=== PATIENT | female | born 1935 | race Caucasian/White ===

== ENCOUNTER → 2017-06-19 | Outpatient (CLI) | payer MEDICARE, OTHER ==
[2016-09-09 12:14] VITALS: BMI 40.6
[~2017-06-19] MED LIST: ALBU8.5H IH; ALLO-119 PO; ALLO100T70 PO; AMLO-96 PO; AMLO-99 PO; AMOX-559 PO; AZIT-1 PO; AZIT-17 PO; BENZ100C26 PO; BENZ100C4 PO; BENZ200C15 PO; BUM2 PO; BUME1TAB19 PO; CHOL10005 PO; CIPHCO EACH EAR; CLIN300C99 PO; COLC0.6C3 PO; COLC0.6T2 PO; CYAN500T38 PO; CYCL-277 PO; CYCL7.5T21 PO; DICL-195 PO; DICL100G39 TOP; DIPH0.5D12 IM; DOCU50CA8 PO; EZET10TA41 PO; FLU220R INH; FLUT16SP19 NS; FLUT1DIS28 IH; FLUT1DIS29 IH; GABA-547 PO; GABA-549 PO; GLY25 FT; GLY25 PO; GUAI600T57 PO; HYDR-385 PO; INSU100C14 SQ; INSU100I28 SQ; INSU100I30 SQ; INSU100I35 SUBQ; IPRA3AMP21 IH; LIDO20SO21 PO; LOR5/325 PO; LOSA100T67 PO; METF-420 PO; METH4TAB66 PO; METH4TAB67 PO; MONT10TA PO; NEBI10TA4 PO; NEBI5TAB PO; NEBU1KIT MC; NEBU1KIT43 MC; NEED-498 MC; NYST100040 PO; PANT40TA65 PO; PIOG15TA14 PO; PIOG30TA3 PO; PREG75CA60 PO; RANI-318 PO; RIVA3CAP PO; ROSU20TA23 PO; SPIR25TA78 PO; TIO18R INH; TRI100 PO; [UNRECOGNIZED DRUG - CODE] SQ
[2017-06-19 13:53] LABS: PLATELET COUNT, AUTOMATED 188 K/uL (150-450)
--- NOTE | 2017-06-19 15:14 | RADIOLOGY IMAGING REPORT ---
FACILITY: [facility] - [place] PATIENT NAME: Kiersten Nails : 1935 MR: [id number] V: [id number] EXAM DATE: ORDERING PHYSICIAN: LYUDMILA PEÑA TECHNOLOGIST: Location: [facility] [place] Patient: Kiersten Nails : 1935 Visit/Account:[id number] Date of Sevice: 06/19/2017 Exam type: CHEST PA AND LAT History: cough Comparison: September 11, 2016. Findings: There is mild by basilar linear scarring. There is no evidence of acute appearing infiltrates pleura l effusions or pulmonary edema there is an ovoid area of increased density projecting over the right heart border on the PA view. This is not ideally localized on the lateral view. This could represen t a superimposed shadow however if patient's symptoms persist CT of the chest may be helpful to exclu de a mass. The cardiac silhouette is normal in size. The trachea is midline. There are moderate sp ondylotic changes of the visualized thoracolumbar spine. IMPRESSION: 1. By basilar linear scarring On the PA view the chest only there is an ovoid area of increased density which could represent a sup erimposed shadow versus mass. If patient's symptoms persist CT of the chest may be of value Report Dictated By: Yoselin Garza MD at 06/19/2017 3:07 PM Report E-Signed By: Yoselin Garza MD at 06/19/2017 3:10 PM WSN:[email or web address]
== END ==
LOC: LAB 13:25
PROVIDERS: ATTEND Internal Medicine
DX: J45.909 Unspecified asthma, uncomplicated (principal); N18.9 Chronic kidney disease, unspecified; I12.9 Hypertensive chronic kidney disease with stage 1 through stage 4 chronic kidney disease, or unspecified chronic kidney disease; E11.40 Type 2 diabetes mellitus with diabetic neuropathy, unspecified; R79.89 Other specified abnormal findings of blood chemistry
CPT/HCPCS: 36415; 82040; 82247; 82310; 82374; 82435; 82565; 82947; 84075; 84132; 84155; 84295; 84443; 84450; 84460; 84520; 85025

== ENCOUNTER → 2017-06-21 | Outpatient (CLI) | payer MEDICARE, OTHER ==
[2016-09-09 12:14] VITALS: BMI 40.6
--- NOTE | 2017-06-21 12:11 | RADIOLOGY IMAGING REPORT ---
FACILITY: [facility] PATIENT NAME: Kiersten Nails : 1935 MR: [id number] V: [id number] EXAM DATE: ORDERING PHYSICIAN: LYUDMILA PEÑA TECHNOLOGIST: Location: [facility] [place] Patient: Kiersten Nails : 1935 Visit/Account:[id number] Date of Sevice: 06/21/2017 CHEST W/O CONTRAST History: lung mass TECHNIQUE: Contiguous axial images were performed through the chest to the level of the adrenal gla nds. No IV contrast was administered. Coronal and sagittal reformatting was also performed. Dose Lowe ring Technique One of the following dose optimization techniques was utilized in the performance of this exam: Autom ated exposure control; adjustment of the mA and/or kV according to the patient's size; or use of an i terative reconstruction technique. Specific details can be referenced in the facility's radiology C T exam operational policy. COMPARISON STUDIES: PA and lateral chest 04/08 2017. Lungs / Pleura: There is mild linear stranding in the lung bases consistent with minimal scarring v ersus discoid atelectasis. A mass lesion is not identified within either lung. The apparent pseudom ass seen projecting over the right lung base on the recent chest radiograph may be related to promine nt vascular structures seen on end. Mediastinum/nodes: No pathologic-appearing mediastinal adenopathy is seen. Small amount of secretio ns are seen in the upper trachea. Heart and vessels: There are moderate coronary artery vascular calcifications and calcination seen a t the aortic root. Central pulmonary arteries are mildly prominent which can be seen with pulmonary arterial hypertension Musculoskeletal / Body wall: There is an S-shaped scoliosis of the thoracal lumbar spine with assoc iated spondylotic changes. Upper abdomen: There is a moderate size hiatal hernia. IMPRESSION: Is no evidence of a pulmonary mass. The pseudomass seen on the recent chest radiograph may be relate d to a prominent vascular structure seen on end. Very mild linear stranding the lung bases consistent with minimal scarring versus discoid atelectasis Small amount of secretions identified in the upper trachea Moderate coronary artery vascular calcifications Central pulmonary arteries are mildly prominent which can be seen with pulmonary arterial hypertensio n Moderate size hiatal hernia Report Dictated By: Yoselin Garza MD at 06/21/2017 11:55 AM Report E-Signed By: Yoselin Garza MD at 06/21/2017 12:06 PM DIEGON:[email or web address]
== END ==
LOC: CT 01:09
PROVIDERS: ATTEND Internal Medicine
DX: R91.8 Other nonspecific abnormal finding of lung field (principal); K44.9 Diaphragmatic hernia without obstruction or gangrene
CPT/HCPCS: 71250

== ENCOUNTER → 2017-07-03 | Outpatient (CLI) | payer MEDICARE, OTHER ==
[2016-09-09 12:14] VITALS: BMI 40.6
[~2017-07-03] MED LIST changes: +ONDA-2 PO
[2017-07-03 08:28] LABS: PLATELET COUNT, AUTOMATED 148 K/uL (150-450)
== END ==
LOC: LAB 08:08
PROVIDERS: ATTEND Internal Medicine
DX: I12.9 Hypertensive chronic kidney disease with stage 1 through stage 4 chronic kidney disease, or unspecified chronic kidney disease (principal); N18.3 Chronic kidney disease, stage 3 (moderate); M1A.39X0 Chronic gout due to renal impairment, multiple sites, without tophus (tophi); E78.00 Pure hypercholesterolemia, unspecified; E11.40 Type 2 diabetes mellitus with diabetic neuropathy, unspecified
CPT/HCPCS: 36415; 81001; 82040; 82043; 82247; 82310; 82374; 82435; 82465; 82565; 82947; 83036; 83718; 84075; 84132; 84155; 84295; 84443; 84450; 84460; 84478; 84520; 84550; 85025

== ENCOUNTER → 2017-08-08 | Outpatient (CLI) | payer MEDICARE, OTHER ==
[2016-09-09 12:14] VITALS: BMI 40.6
--- NOTE | 2017-08-09 09:05 | RADIOLOGY IMAGING REPORT ---
[place] [facility] [place] NAME: JUVE VELARDE : [id number] MR: [id number] V: [id number] EXAM DATE: ORDERING PHYSICIAN: LYUDMILA PEÑA TECHNOLOGIST: She Ragland PROCEDURE:BILATERAL DIGITAL SCREENING MAMMOGRAM WITH CAD ASSISTED INTERPRETATION & 3D TOMOSYNTHESIS COMPARISON:Prior mammograms 07/28/16, 07/24/14, 10/10/12, 10/10/11, 04/04/11 INDICATIONS:SCREENING FINDINGS: A small amount of fibroglandular tissue is seen throughout the breasts. The parenchymal pattern has remained stable allowing for difference in mammographic technique & patient positioning. There is no evidence of malignant appearing mass, malignant appearing calcifications or other secondary sign of malignancy in either breast. DIAGNOSTIC CATEGORY 1--NEGATIVE. RECOMMENDATIONS: ROUTINE MAMMOGRAM AND CLINICAL EVALUATION. IMPRESSION: BIRADS 1: Negative No significant abnormality is seen Dictated by: Yoselin Garza M.D. on 08/08/2017 at 16:55 Transcribed by: FIX on 08/09/2017 at 8:00 Approved by: Yoselin Garza M.D. on 08/09/2017 at 9:04 [facility]
== END ==
LOC: MAMO 00:14
PROVIDERS: ATTEND Internal Medicine
DX: Z12.31 Encounter for screening mammogram for malignant neoplasm of breast (principal)
CPT/HCPCS: 77063; 77067

== ENCOUNTER → 2017-09-26 | Outpatient (CLI) | payer MEDICARE, OTHER ==
[2016-09-09 12:14] VITALS: BMI 40.6
[2017-09-26 08:47] LABS: PLATELET COUNT, AUTOMATED 177 K/uL (150-450)
== END ==
LOC: LAB 08:23
PROVIDERS: ATTEND Internal Medicine
DX: I12.9 Hypertensive chronic kidney disease with stage 1 through stage 4 chronic kidney disease, or unspecified chronic kidney disease (principal); N18.3 Chronic kidney disease, stage 3 (moderate); E11.40 Type 2 diabetes mellitus with diabetic neuropathy, unspecified; M1A.09X0 Idiopathic chronic gout, multiple sites, without tophus (tophi); E78.00 Pure hypercholesterolemia, unspecified
CPT/HCPCS: 36415; 82040; 82247; 82310; 82374; 82435; 82465; 82565; 82947; 83036; 83718; 84075; 84132; 84155; 84295; 84443; 84450; 84460; 84478; 84520; 84550; 85025

== ENCOUNTER → 2017-12-04 | Outpatient (CLI) | payer MEDICARE, OTHER ==
[2016-09-09 12:14] VITALS: BMI 40.6
[~2017-12-04] MED LIST changes: +LEVO50TA86 PO; -METF-420 PO; +METF-421 PO; +OXYC-865 PO
[2017-12-04 07:58] LABS: PLATELET COUNT, AUTOMATED 192 K/uL (150-450)
== END ==
LOC: LAB 07:34
PROVIDERS: ATTEND Internal Medicine
DX: I12.9 Hypertensive chronic kidney disease with stage 1 through stage 4 chronic kidney disease, or unspecified chronic kidney disease (principal); N18.9 Chronic kidney disease, unspecified; J45.909 Unspecified asthma, uncomplicated; M10.9 Gout, unspecified; E66.01 Morbid (severe) obesity due to excess calories; E11.49 Type 2 diabetes mellitus with other diabetic neurological complication
CPT/HCPCS: 36415; 82040; 82043; 82247; 82310; 82374; 82435; 82465; 82565; 82947; 83036; 83718; 84075; 84132; 84155; 84295; 84439; 84443; 84450; 84460; 84478; 84520; 84550; 85025

== ENCOUNTER → 2018-03-12 | Outpatient (CLI) | payer MEDICARE, OTHER ==
[2016-09-09 12:14] VITALS: BMI 40.6
[~2018-03-12] MED LIST changes: +AMLO-111 PO; +AMLO-113 PO; -AMLO-96 PO; -AMLO-99 PO; +IPRA3AMP10 IH; -IPRA3AMP21 IH; -LOSA100T67 PO; +LOSA100T69 PO; -METF-421 PO; +METF-452 PO; -PIOG30TA3 PO; +PIOG30TA71 PO; -SPIR25TA78 PO; +SPIR25TA80 PO
[2018-03-12 08:40] LABS: PLATELET COUNT, AUTOMATED 218 K/uL (150-450)
== END ==
LOC: LAB 08:01
PROVIDERS: ATTEND Internal Medicine
DX: E03.9 Hypothyroidism, unspecified (principal); E11.49 Type 2 diabetes mellitus with other diabetic neurological complication; E78.00 Pure hypercholesterolemia, unspecified; M10.9 Gout, unspecified; N18.9 Chronic kidney disease, unspecified; I10 Essential (primary) hypertension
CPT/HCPCS: 36415; 81001; 82040; 82247; 82310; 82374; 82435; 82465; 82565; 82947; 83036; 83718; 84075; 84132; 84155; 84295; 84443; 84450; 84460; 84478; 84520; 84550; 85025

== ENCOUNTER → 2018-05-21 | Outpatient (CLI) | payer MEDICARE, OTHER ==
[2016-09-09 12:14] VITALS: BMI 40.6
[~2018-05-21] MED LIST changes: +NEED-653 MC
[2018-05-21 12:23] LABS: PLATELET COUNT, AUTOMATED 187 K/uL (150-450)
--- NOTE | 2018-05-21 13:54 | RADIOLOGY IMAGING REPORT ---
FACILITY: [facility] [place] PATIENT NAME: Kiersten Nails : 1935 MR: [id number] V: [id number] EXAM DATE: ORDERING PHYSICIAN: LYUDMILA PEÑA TECHNOLOGIST: Location: [facility] [place] Patient: Kiersten Nails : 1935 Visit/Account:[id number] Date of Sevice: 05/21/2018 ABDOMEN AP AND ERECT/DECUB History: Chronic kidney disease. Diarrhea for 2 months. Comparison study: CT chest June 21, 2017. Findings: Chest: The heart size is normal. There is linear density in the lung bases but there is n o finding A. Previously noted nodular densities on the prior CT scan are not as well seen on today's examination. ABDOMEN: There are no dilated loops of large or small bowel to suggest ileus or obstruction. There i s a fair amount of fecal material throughout the colon and rectum. The possibility constipation is r aised. There is osteopenia. Status post right total hip replacement. Osteoarthrosis of the left knee. Dis cogenic degenerative changes in the lumbar spine. No obvious renal calculi noted. IMPRESSION: 1. No active disease in the chest. Bibasilar scarring. 2. No findings of ileus or obstruction, but there is a fair amount of fecal material throughout the colon. The possibility constipation is raised. 3. Discogenic degenerative changes in the lumbar spine. Osteoarthrosis of the left hip. Status pos t right total hip replacement. Report Dictated By: Hero Dela Cruz MD at 05/21/2018 1:49 PM Report E-Signed By: Hero Dela Cruz MD at 05/21/2018 1:51 PM WSN:[email or web address]
== END ==
LOC: LAB 11:35
PROVIDERS: ATTEND Internal Medicine
DX: M85.80 Other specified disorders of bone density and structure, unspecified site (principal); M17.12 Unilateral primary osteoarthritis, left knee; J45.901 Unspecified asthma with (acute) exacerbation; N18.9 Chronic kidney disease, unspecified; R19.7 Diarrhea, unspecified; R82.71 Bacteriuria
CPT/HCPCS: 36415; 74022; 81001; 82040; 82247; 82274; 82310; 82374; 82435; 82565; 82947; 83630; 84075; 84132; 84155; 84295; 84443; 84450; 84460; 84520; 85025; 87045; 87088; 87205

== ENCOUNTER → 2018-05-23 | Outpatient (CLI) | payer MEDICARE, OTHER ==
[2016-09-09 12:14] VITALS: BMI 40.6
== END ==
LOC: LAB 08:21
PROVIDERS: ATTEND Internal Medicine
DX: R19.7 Diarrhea, unspecified (principal); N18.9 Chronic kidney disease, unspecified
CPT/HCPCS: 36415; 82310; 82374; 82435; 82565; 82947; 84132; 84295; 84520

== ENCOUNTER → 2018-05-27 | Outpatient (CLI) | payer MEDICARE, OTHER ==
[2016-09-09 12:14] VITALS: BMI 40.6
[~2018-05-27] MED LIST changes: +DOCU-416 PO; -LOSA100T69 PO; +LOSA100T75 PO
== END ==
LOC: LAB 10:54
PROVIDERS: ATTEND Internal Medicine
DX: N18.9 Chronic kidney disease, unspecified (principal)
CPT/HCPCS: 36415; 82310; 82374; 82435; 82565; 82947; 84132; 84295; 84520

== ENCOUNTER → 2018-06-20 | Outpatient (CLI) | payer MEDICARE, OTHER ==
[2016-09-09 12:14] VITALS: BMI 40.6
[~2018-06-20] MED LIST changes: +MET16 PO
[2018-06-20 08:24] LABS: PLATELET COUNT, AUTOMATED 225 K/uL (150-450)
== END ==
LOC: LAB 08:05
PROVIDERS: ATTEND Internal Medicine
DX: N18.9 Chronic kidney disease, unspecified (principal); M10.9 Gout, unspecified; E78.00 Pure hypercholesterolemia, unspecified; I10 Essential (primary) hypertension; E11.49 Type 2 diabetes mellitus with other diabetic neurological complication
CPT/HCPCS: 36415; 81001; 82040; 82247; 82310; 82374; 82435; 82465; 82565; 82947; 83036; 83718; 84075; 84132; 84155; 84295; 84443; 84450; 84460; 84478; 84520; 84550; 85025

== ENCOUNTER → 2018-07-08 | Outpatient (CLI) | payer MEDICARE, OTHER ==
[2016-09-09 12:14] VITALS: BMI 40.6
[~2018-07-08] MED LIST changes: -AMLO-111 PO; -AMLO-113 PO; +AMLO-125 PO; +AMLO-127 PO
[2018-07-08 12:12] LABS: PLATELET COUNT, AUTOMATED 207 K/uL (150-450)
== END ==
LOC: LAB 11:04
PROVIDERS: ATTEND Internal Medicine
DX: E11.49 Type 2 diabetes mellitus with other diabetic neurological complication (principal); J45.909 Unspecified asthma, uncomplicated; N18.9 Chronic kidney disease, unspecified; E03.9 Hypothyroidism, unspecified
CPT/HCPCS: 36415; 82040; 82247; 82310; 82374; 82435; 82565; 82947; 83036; 84075; 84132; 84155; 84295; 84439; 84443; 84450; 84460; 84520; 85025

== ENCOUNTER → 2018-08-01 | Outpatient (CLI) | payer MEDICARE, OTHER ==
[2016-09-09 12:14] VITALS: BMI 40.6
--- NOTE | 2018-08-01 16:43 | RADIOLOGY IMAGING REPORT ---
FACILITY: [facility] PATIENT NAME: Kiersten Nails : 1935 MR: [id number] V: [id number] EXAM DATE: ORDERING PHYSICIAN: LYUDMILA PEÑA TECHNOLOGIST: Location: [facility] Patient: Kiersten Nails : 1935 Visit/Account:[id number] Date of Sevice: 08/01/2018 2 VIEWS CHEST INDICATION: Cough. Asthma exacerbation. COMPARISON: 06/13/2018. FINDINGS: Cardiomediastinal silhouette and pulmonary vessels within normal limits. There is no focal infiltrate or lobar consolidation. There is no pneumothorax or pleural effusion. No nodule. Mild scarring seen in both costophrenic angle regions in the right middle lobe. Upper abdomen is unremarkable. No acute bony abnormality. Mild rightward convexity thoracal lumbar sp ine. IMPRESSION: 1. No acute cardiopulmonary process. Report Dictated By: Flavio Salamanca at 08/01/2018 4:34 PM Report E-Signed By: Flavio Salamanca at 08/01/2018 4:36 PM WSN:[id number]
== END ==
LOC: RAD 15:50
PROVIDERS: ATTEND Internal Medicine
DX: J45.901 Unspecified asthma with (acute) exacerbation (principal)
CPT/HCPCS: 71046

== ENCOUNTER → 2018-08-15 | Outpatient (CLI) | payer MEDICARE, OTHER ==
[2016-09-09 12:14] VITALS: BMI 40.6
[2018-08-15 08:32] LABS: PLATELET COUNT, AUTOMATED 170 K/uL (150-450)
== END ==
LOC: LAB 08:14
PROVIDERS: ATTEND Internal Medicine
DX: E11.49 Type 2 diabetes mellitus with other diabetic neurological complication (principal); N18.9 Chronic kidney disease, unspecified; E03.9 Hypothyroidism, unspecified; E78.00 Pure hypercholesterolemia, unspecified
CPT/HCPCS: 36415; 82040; 82247; 82310; 82374; 82435; 82465; 82565; 82947; 83036; 83718; 84075; 84132; 84155; 84295; 84443; 84450; 84460; 84478; 84520; 85025

== ENCOUNTER 2018-08-16 10:11 | Inpatient (IN) | payer MEDICARE, OTHER ==
[~2018-08-16] VITALS: Ht 160 cm; Wt 110.2 kg
--- NOTE | 2018-08-16 10:15 | ER Report ---
History and Physical Time Seen By MD: 10:45 HPI/ROS CHIEF COMPLAINT: Nausea vomiting diarrhea elevated BUN/creatinine HISTORY OF PRESENT ILLNESS: Patient is an 83-year-old female who presents emergency department for evaluation of 3-4 days of nausea. Episodes of vomiting but watery diarrhea. She was seen by her primary care provider judy some blood work. The electronic medical record shows baseline creatinine between 1.3 and 1.8. Blood work from August 15 shows a B line of 80 with a creatinine of 3.2. This reason the patient was sent in by her primary care provider for further evaluation. Patient herself denies any chest pain she has baseline shortness of breath due to reactive airways disease. She denies any abdominal pain. She was n't having multiple watery stools. She denies any particularly foul-smelling stools she denies any [place] soup stools; but states it's more watery. She recently had a febrile illness approximately one month ago was tested for influenza but was reported to be "negative". Patient's granddaughter however did test positive for and she has had close contact with her. She denies currently any fevers. She reports severe anorexia; not taking fluids well and unable to keep hydrated. She reports significant decreased urine output. REVIEW OF SYSTEMS: Constitutional: No fever approximately 4 weeks ago currently none Eyes: No discharge. ENT: No sore throat. Cardiovascular: No chest pain, no palpitations. Respiratory: No cough, no shortness of breath. Gastrointestinal: Abdominal pain, severe nausea, occasional vomiting, watery diarrhea Genitourinary: No hematuria. Musculoskeletal: No back pain. Skin: No rashes. Neurological: No headache. Allergies: Coded Allergies: ciprofloxacin (Verified Allergy, Severe, TENDONITIS, 08/30/15) levofloxacin (Verified Allergy, Severe, tendonitis in arm, 01/06/17) Iodinated Contrast- Oral and IV Dye (Verified Allergy, Mild, NAUSEA/VOMITING, 08/30/15) codeine (Verified Allergy, Mild, NAUSEA/VOMITING, 01/06/17) Pnluiph-Mkc-Ila Reductase Inhibitor (Verified Allergy, Unknown, myalgias, 01/06/17) Sulfa (Sulfonamide Antibiotics) (Verified Allergy, Unknown, "blanks me out", vomiting, 06/07/17) diazepam (Verified Allergy, Unknown, SOMNOLENCE, 01/06/17) diphenhydramine (Verified Allergy, Unknown, HALLUCINATIONS, 01/06/17) metoprolol (Verified Allergy, Unknown, "slowed me down", 01/06/17) Neuromuscular Blockers, Steroidal (Verified Adverse Reaction, Unknown, 01/06/17) raises BP and BS Tetracyclines (Verified Adverse Reaction, Unknown, yeast infection, 06/07/17) prednisone (Verified Adverse Reaction, Unknown, 08/30/15) "INCREASES BLOOD SUGAR" Home Meds Active Scripts Allopurinol (ALLOPURINOL) 100 Mg Tablet, 2 TAB PO QDAY, #180 TAB 3 Refills Prov:LYUDMILA PEÑA MD 08/05/18 Fluticasone/Salmeterol (ADVAIR 250-50 DISKUS) 1 Each Disk.w.dev, 1 EACH IH BID, #3 DISK 4 Refills Prov:LYUDMILA PEÑA MD 08/05/18 Losartan Potassium (LOSARTAN POTASSIUM) 100 Mg Tablet, 1 TAB PO QDAY, #90 TAB 3 Refills Prov:LYUDMILA PEÑA MD 08/05/18 [place], Insulin Disposable (Bd Ultra-Fine Pen Needle) 1 Each Dis.needle, UNIT MC Q30D, #100 5 Refills Prov:LYUDMILA PEÑA MD 08/01/18 [place], Insulin Disposable (INSULIN PEN NEEDLE) 1 Each Dis.needle, 1 EACH MC 3- 4XD, #100 5 Refills use with lantus solostar Prov:LYUDMILA PEÑA MD 08/01/18 Bumetanide (BUMETANIDE) 1 Mg Tablet, 2 TAB PO DAILY PRN for edema, #90 TAB 1 Refill Prov:LYUDMILA PEÑA MD 07/18/18 Rivastigmine Tartrate (RIVASTIGMINE) 3 Mg Capsule, 1 CAP PO BID, #180 CAPSULE 4 Refills Prov:LYUDMILA PEÑA MD 07/18/18 Benzonatate 100 Mg Cap (TESSALON PERLE 100 MG CAP) 100 Mg Capsule, 100 MG PO TID PRN for cough, #30 CAP Prov:LYUDMILA PEÑA MD 06/13/18 Tiotropium [place]re (SPIRIVA) 18 Mcg/Cap Inh, 18 MCG INH QDAYR, #30 INH 11 Refills Prov:LYUDMILA PEÑA MD 02/01/18 Fluticasone Prop 50 Mcg Ns (FLONASE 50 MCG NS) 16 Gm Williamson.susp, 2 SPRAYS NS QDAY, #1 BOT 3 Refills Prov:LYUDMILA PEÑA MD 12/10/17 Insulin Glargine 100 Un/Ml Pen (LANTUS SOLOSTAR PEN) 100 Unit/1 Ml Insuln.pen, 13-15 UNIT SQ BID, #3 VIAL 9 Refills 15 units in am and 13 units in the evening Prov:LYUDMILA PEÑA MD 12/06/17 Ezetimibe (ZETIA) 10 Mg Tablet, 1 TAB PO QDAY, #90 TAB 3 Refills Prov:LYUDMILA PEÑA MD 10/01/17 Amlodipine Besylate (AMLODIPINE BESYLATE) 5 Mg Tablet, 1 TAB PO QDAY, #90 TAB 3 Refills Prov:LYUDMILA PEÑA MD 10/01/17 Ipratropium/Albuterol Sulfate (IPRAT-ALBUT 0.5-3(2.5) MG/3 ML) 3 Ml Ampul.neb, 3 ML IH QID PRN for SHORTNESS OF BREATH, #200 TAB 2 Refills Prov:LYUDMILA PEÑA MD 09/07/17 Nebivolol Hcl (BYSTOLIC) 10 Mg Tab, 1 TAB PO BID, #180 TAB 3 Refills Prov:LYUDMILA PEÑA MD 07/06/17 Insulin Aspart 100 Un/Ml Pen (NOVOLOG FLEXPEN) 100 Unit/1 Ml Insuln.pen, 4-12 UN IT SUBQ TIDAC PRN for SLIDING SCALE INSULIN, #2 BOTTLE 9 Refills Prov:LYUDMILA PEÑA MD 07/06/17 Gabapentin (GABAPENTIN) 300 Mg Capsule, 1 CAP PO TID PRN for neuropathy, #270 CA PSULE 3 Refills Prov:LYUDMILA PEÑA MD 07/06/17 Fluticasone Prop 50 Mcg Ns (FLONASE 50 MCG NS) 16 Gm Williamson.susp, 2 SPRAYS NS QDAY, #1 BOT Prov:LYUDMILA PEÑA MD 04/16/17 Albuterol Sulfate 90 Mcg/Act (PROAIR HFA 90 MCG/ACT) 8.5 Gm Hfa.aer.ad, 2 PUFF IH Q4-6H PRN for SHORTNESS OF BREATH, #1 INHALER 6 Refills Prov:LYUDMILA PEÑA MD 05/02/16 Reported Medications Docusate Sodium (COLACE) 100 Mg Capsule, 100 MG PO QDAY, CAPSULE 05/27/18 Cyanocobalamin (Vitamin B-12) (VITAMIN B-12) 500 Mcg Tablet, 500 MCG PO DAILY 08/12/14 Discontinued Scripts Oxycodone Hcl/Acetaminophen (PERCOCET 5-325 MG TABLET) 1 Each Tablet, 1 EACH PO QID PRN for pain, #60 TAB Prov:LYUDMILA PEÑA MD 10/01/17 Methylprednisolone (METHYLPREDNISOLONE) 4 Mg Tab.ds.pk, 4 MG PO DIRECTED, #1 DOSE-PACK Prov:LYUDMILA PEÑA MD 08/01/18 Azithromycin (Z-PACK) 250 Mg Tablet, 0 PO QDAY, #6 DOSE-PACK Prov:LYUDMILA PEÑA MD 08/01/18 Azithromycin (Z-PACK) 250 Mg Tablet, 0 PO QDAY, #6 DOSE-PACK Prov:LYUDMILA PEÑA MD 07/08/18 Past Medical/Surgical History Past medical history for dementia, neuropathy, retinopathy, hyperlipidemia, chronic lower extremity edema,hypertension, asthma, gastroesophageal reflux disease, history of urinary tract infection, history of type II diabetes, history of increased body mass index, past surgical history for tonsillectomy, appendectomy, hysterectomy, spinal surgery, right total hip replacement Smoking Status: Never Smoker Exposure to Second Hand Smoke?: No Hx Substance Use Disorder: No Hx Alcohol Use: No Constitutional Vital Sign - Last 24 Hours 08/16/18 08/16/18 08/16/18 08/16/18 10:11 10:20 10:26 10:30 Temp 98.0 Pulse ??? 66 ??? Resp 22 B/P (MAP) 138/50 138/50 (79) 114/43 (66) Pulse Ox 93 O2 Delivery Nasal Cannula 08/16/18 08/16/18 08/16/18 08/16/18 10:41 10:53 10:53 10:56 Pulse 59 56 58 Resp 12 16 Pulse Ox 90 91 O2 Delivery Nasal Cannula O2 Flow Rate 3.0 08/16/18 08/16/18 08/16/18 10:58 11:00 11:11 Pulse 59 55 Resp 16 16 B/P (MAP) 108/46 (66) Pulse Ox 90 Physical Exam General/Constitutional: Patient is awake, alert, nontoxic and in no acute respiratory distress. Head: Normocephalic and atraumatic. Eyes: Conjunctival clear, Pupils are equal and reactive to light. Sclera are clear and anicteric. Ears:External canals are clear. Tympanic membranes are clear with normal landmarks and light reflex. Nares: No rhinorrhea or bleeding. Turbinates are pink and moist. Oropharyngeal: Mucous membranes are moist. There is no pharyngeal erythema or exudate. There are no palatal petechiae. Uvula is midline and symmetrical. Neck: Supple, no adenopathy. Cardiovascular: Heart is regular rate and rhythm without audible murmurs, rubs or gallops. Pulmonary: Lungs are noted for diffuse wheezing with increased respiratory rate s3 muscle use is noted Abdomen: Soft, nontender, no guarding or peritoneal signs. Extremities: No gross deformities, No peripheral cyanosis. Able to move all 4 extremities. Neuro: Alert and oriented X3, Skin: No rashes, skin is warm dry and well perfused. Medical Decision Making Data Points Result Diagram: 08/16/18 1039 08/16/18 1039 Laboratory Hematology Test 08/16/18 10:16 08/16/18 10:39 08/16/18 10:50 Urine Color Yellow Urine Clarity Slightly-cloudy Urine pH 5.0 pH (4.8-9.5) Urine Specific [place] 1.012 Urine Protein Negative mg/dL (NEGATIVE) Urine Glucose (UA) Negative mg/dL (NEGATIVE) Urine Ketones Negative mg/dL (NEGATIVE) Urine Blood Negative (NEGATIVE) Urine Nitrite Negative (NEGATIVE) Urine Bilirubin Negative (NEGATIVE) Urine Urobilinogen Negative mg/dL (0.2-1.9) Urine Leukocyte Esterase Negative (NEGATIVE) Urine RBC 2 /HPF (0-2/HPF) Urine WBC 3 /HPF (0-5/HPF) Urine Squamous Epithelial Cells Many /LPF (</=FEW) Urine Bacteria Few /HPF (NONE-FEW) Urine Hyaline Casts Many /LPF (NONE-FEW) Urine Mucus None /HPF (NONE-FEW) Red Blood Count 3.99 M/uL (4.17-5.56) Mean Corpuscular Volume 96.9 fL (80.0-96.0) Mean Corpuscular Hemoglobin 31.7 pg (26.0-33.0) Mean Corpuscular Hemoglobin Concent 32.7 g/dL (32.0-36.0) Red Cell Distribution Width 15.2 % (11.5-14.5) Mean Platelet Volume 11.1 fL (7.2-11.1) Neutrophils (%) (Auto) 71.6 % (39.4-72.5) Lymphocytes (%) (Auto) 18.5 % (17.6-49.6) Monocytes (%) (Auto) 6.5 % (4.1-12.4) Eosinophils (%) (Auto) 2.6 % (0.4-6.7) Basophils (%) (Auto) 0.8 % (0.3-1.4) Nucleated RBC Relative Count (auto) 0.0 /100WBC Neutrophils # (Auto) 7.0 K/uL (2.0-7.4) Lymphocytes # (Auto) 1.8 K/uL (1.3-3.6) Monocytes # (Auto) 0.6 K/uL (0.3-1.0) Eosinophils # (Auto) 0.3 K/uL (0.0-0.5) Basophils # (Auto) 0.1 K/uL (0.0-0.1) Nucleated RBC Absolute Count (auto) 0.00 K/uL Sodium Level 135 mmol/L (137-145) Potassium Level 4.3 mmol/L (3.5-5.0) Chloride Level 99 mmol/L (98-107) Carbon Dioxide Level 25 mmol/L (22-31) Blood Urea Nitrogen 77 mg/dl (7-18) Creatinine 2.90 mg/dl (0.52-1.04) Glomerular Filtration Rate Calc 15.4 Random Glucose 207 mg/dl (75-110) Calcium Level 8.9 mg/dl (8.4-10.2) Total Bilirubin 0.7 mg/dl (0.2-1.3) Aspartate Amino Transf (AST/SGOT) 20 U/L (0-35) Alanine Aminotransferase (ALT/SGPT) 24 U/L (0-56) Alkaline Phosphatase 79 U/L (0-126) Total Protein 6.6 g/dl (6.3-8.2) Albumin 4.0 g/dl (3.5-5.0) Lipase 183 U/L (23-300) Helicobacter pylori IgG Antibody Negative (NEGATIVE) Influenza Virus Type A (PCR) Negative (NEGATIVE) Influenza Virus Type B (PCR) Negative (NEGATIVE) Chemistry Test 08/16/18 10:16 08/16/18 10:39 08/16/18 10:50 Urine Color Yellow Urine Clarity Slightly-cloudy Urine pH 5.0 pH (4.8-9.5) Urine Specific [place] 1.012 Urine Protein Negative mg/dL (NEGATIVE) Urine Glucose (UA) Negative mg/dL (NEGATIVE) Urine Ketones Negative mg/dL (NEGATIVE) Urine Blood Negative (NEGATIVE) Urine Nitrite Negative (NEGATIVE) Urine Bilirubin Negative (NEGATIVE) Urine Urobilinogen Negative mg/dL (0.2-1.9) Urine Leukocyte Esterase Negative (NEGATIVE) Urine RBC 2 /HPF (0-2/HPF) Urine WBC 3 /HPF (0-5/HPF) Urine Squamous Epithelial Cells Many /LPF (</=FEW) Urine Bacteria Few /HPF (NONE-FEW) Urine Hyaline Casts Many /LPF (NONE-FEW) Urine Mucus None /HPF (NONE-FEW) White Blood Count 9.7 k/uL (4.5-11.0) Red Blood Count 3.99 M/uL (4.17-5.56) Hemoglobin 12.6 g/dL (12.0-16.0) Hematocrit 38.7 % (34.0-47.0) Mean Corpuscular Volume 96.9 fL (80.0-96.0) Mean Corpuscular Hemoglobin 31.7 pg (26.0-33.0) Mean Corpuscular Hemoglobin Concent 32.7 g/dL (32.0-36.0) Red Cell Distribution Width 15.2 % (11.5-14.5) Platelet Count 153 K/uL (150-450) Mean Platelet Volume 11.1 fL (7.2-11.1) Neutrophils (%) (Auto) 71.6 % (39.4-72.5) Lymphocytes (%) (Auto) 18.5 % (17.6-49.6) Monocytes (%) (Auto) 6.5 % (4.1-12.4) Eosinophils (%) (Auto) 2.6 % (0.4-6.7) Basophils (%) (Auto) 0.8 % (0.3-1.4) Nucleated RBC Relative Count (auto) 0.0 /100WBC Neutrophils # (Auto) 7.0 K/uL (2.0-7.4) Lymphocytes # (Auto) 1.8 K/uL (1.3-3.6) Monocytes # (Auto) 0.6 K/uL (0.3-1.0) Eosinophils # (Auto) 0.3 K/uL (0.0-0.5) Basophils # (Auto) 0.1 K/uL (0.0-0.1) Nucleated RBC Absolute Count (auto) 0.00 K/uL Glomerular Filtration Rate Calc 15.4 Calcium Level 8.9 mg/dl (8.4-10.2) Total Bilirubin 0.7 mg/dl (0.2-1.3) Aspartate Amino Transf (AST/SGOT) 20 U/L (0-35) Alanine Aminotransferase (ALT/SGPT) 24 U/L (0-56) Alkaline Phosphatase 79 U/L (0-126) Total Protein 6.6 g/dl (6.3-8.2) Albumin 4.0 g/dl (3.5-5.0) Lipase 183 U/L (23-300) Helicobacter pylori IgG Antibody Negative (NEGATIVE) Influenza Virus Type A (PCR) Negative (NEGATIVE) Influenza Virus Type B (PCR) Negative (NEGATIVE) Urinalysis Test 08/16/18 10:16 Urine Color Yellow Urine Clarity Slightly-cloudy Urine pH 5.0 pH (4.8-9.5) Urine Specific [place] 1.012 Urine Protein Negative mg/dL (NEGATIVE) Urine Glucose (UA) Negative mg/dL (NEGATIVE) Urine Ketones Negative mg/dL (NEGATIVE) Urine Blood Negative (NEGATIVE) Urine Nitrite Negative (NEGATIVE) Urine Bilirubin Negative (NEGATIVE) Urine Urobilinogen Negative mg/dL (0.2-1.9) Urine Leukocyte Esterase Negative (NEGATIVE) Urine RBC 2 /HPF (0-2/HPF) Urine WBC 3 /HPF (0-5/HPF) Urine Squamous Epithelial Cells Many /LPF (</=FEW) Urine Bacteria Few /HPF (NONE-FEW) Urine Hyaline Casts Many /LPF (NONE-FEW) Urine Mucus None /HPF (NONE-FEW) EKG/Imaging Imaging FACILITY: [facility] PATIENT NAME: Kiersten Nails : 1935 MR: [id number] V: [id number] EXAM DATE: ORDERING PHYSICIAN: ANGELIC FRANCIS TECHNOLOGIST: Location: [facility] [place] Patient: Kiersten Nails : 1935 Visit/Account:[id number] Date of Sevice: 08/16/2018 CHEST PA LAT COMPARISON: 08/01/2018. HISTORY: cough FINDINGS: CARDIAC/VASC: No cardiac silhouette abnormality or cardiomegaly. Unremarkable pulmonary vasculature. MEDIASTINUM: No visible mass or adenopathy. LUNGS/PLEURA: No pneumothorax. Hyperinflated lungs compatible with COPD. No significant pulmonary parenchymal abnormalities.There is interstitial prominence in the lung bases most consistent with minor parenchymal scarring. No costophrenic angle blunting to suggest the presence of a significant effusion. BONES: No fracture or visible bony lesion. Mild thoracic spine degenerative change. OTHER:Negative. IMPRESSION: COPD and minor parenchymal scarring. No acute cardiopulmonary process. Report Dictated By: Tomás Shah at 08/16/2018 11:49 AM Report E-Signed By: Tomás Shah at 08/16/2018 11:49 AM WSN:[id number] ED Course/Re-evaluation Clinical Indication for ER IV: Hydration, IV Access ED Course 08/16/2018 11:05:11 am patient with elevation of BUN/creatinine ratio suggests dehydration which would be consistent with history of vomiting and diarrhea. She does have a history of slightly elevated creatinine although medical record does not indicate any history of chronic kidney disease. Current creatinine is essentially doubled from baseline however feel that this is likely due to dehydration but given patient's history of edema will be careful hydration. P atient will likely require admission for observation, hydration and trending of BUN/creatinine. We will give a DuoNeb for wheezing heard on exam check chest x- ray, influenza repeat blood work. Decision to Disposition Date: Aug 16, 2018 Decision to Disposition Time: 12:12 Depart Departure Latest Vital Signs Vital Signs Date Time Temp Pulse Resp B/P (MAP) Pulse Ox O2 Delivery O2 Flow Rate FiO2 08/16/18 11:11 55 16 90 08/16/18 11:00 108/46 (66) 08/16/18 10:53 Nasal Cannula 3.0 08/16/18 10:20 98.0 Impression: Primary Impression: Chronic kidney disease (CKD) Additional Impression: Dehydration Condition: Improved Disposition: Admitted from ER (to Dr Yang Plunkett) Referrals: LYUDMILA PEÑA MD (PCP) Problem Qualifiers Primary Impression: Chronic kidney disease (CKD) Chronic kidney disease stage: stage 1 Qualified Codes: N18.1 - Chronic kidney disease, stage 1 ANGELIC FRANCIS MD Aug 16, 2018 10:15
[2018-08-16] MEDS ORDERED: NS(*) 0.9% 500 ML BAG 500 ML IV ONE (10:27)
[2018-08-16] MEDS ORDERED: ONDANSETRON 4 MG/2 ML VIAL IVP ONE (10:30)
[2018-08-16 10:46] LABS: PLATELET COUNT, AUTOMATED 153 K/uL (150-450)
[2018-08-16] MEDS ORDERED: ALBUTEROL/IPRATROPIUM 3 ML NEB NEB ONE (10:50)
--- NOTE | 2018-08-16 11:53 | RADIOLOGY IMAGING REPORT ---
FACILITY: [facility] PATIENT NAME: Kiersten Nails : 1935 MR: [id number] V: [id number] EXAM DATE: ORDERING PHYSICIAN: ANGELIC FRANCIS TECHNOLOGIST: Location: [facility] [place] Patient: Kiersten Nails : 1935 Visit/Account:[id number] Date of Sevice: 08/16/2018 CHEST PA LAT COMPARISON: 08/01/2018. HISTORY: cough FINDINGS: CARDIAC/VASC: No cardiac silhouette abnormality or cardiomegaly. Unremarkable pulmonary vasculatu re. MEDIASTINUM: No visible mass or adenopathy. LUNGS/PLEURA: No pneumothorax. Hyperinflated lungs compatible with COPD. No significant pulmonary p arenchymal abnormalities.There is interstitial prominence in the lung bases most consistent with leobardo r parenchymal scarring. No costophrenic angle blunting to suggest the presence of a significant effu goirgi. BONES: No fracture or visible bony lesion. Mild thoracic spine degenerative change. OTHER:Negative. IMPRESSION: COPD and minor parenchymal scarring. No acute cardiopulmonary process. Report Dictated By: Tomás Shah at 08/16/2018 11:49 AM Report E-Signed By: Tomás Shah at 08/16/2018 11:49 AM WSN:[id number]
[2018-08-16 12:48] VITALS: BP 124/52
[2018-08-16] MEDS ORDERED: ALBUTEROL 2.5 MG/3 ML NEB NEB PRN (13:30)
[2018-08-16] MEDS ORDERED: INSULIN HUM LISPRO 100 UN/ML 3 ML VIAL SUBQ PRN (14:00)
--- NOTE | 2018-08-16 14:00 | History & Physical ---
History of Present Illness History of Present Illness 83yo female with a h/o CKD, asthma and T2DM who was sent to the ER for elevated creatinine. For the last 3-4 days, she has had loose stools (a couple a day). No blood in the stools or black tarry stools. She has also had nausea. Since 05/21, she has had a nagging cough. She has been on antibiotics, which help for a few days. Her last course of abx was a Z arun on 08/01 and was put on a Medrol Dosepak. She has noted more BUI over the last couple of days, also. No f/c/dysuria/worsening LE edema. In the ER, she was given a DuoNeb, Zofran, and 500cc of NS. 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 (9) GERD (gastroesophageal reflux disease) Status: Chronic (10) Chronic kidney disease (CKD) Status: Chronic (11) Asthma Status: Chronic (12) Gout Status: Chronic Home Meds Active Scripts Allopurinol (ALLOPURINOL) 100 Mg Tablet, 2 TAB PO QDAY, #180 TAB 3 Refills Prov:LYUDMILA PEÑA MD 08/05/18 Fluticasone/Salmeterol (ADVAIR 250-50 DISKUS) 1 Each Disk.w.dev, 1 EACH IH BID, #3 DISK 4 Refills Prov:LYUDMILA PEÑA MD 08/05/18 Losartan Potassium (LOSARTAN POTASSIUM) 100 Mg Tablet, 1 TAB PO QDAY, #90 TAB 3 Refills Prov:LYUDMILA PEÑA MD 08/05/18 [place], Insulin Disposable (Bd Ultra-Fine Pen Needle) 1 Each Dis.needle, UNIT MC Q30D, #100 5 Refills Prov:LYUDMILA PEÑA MD 08/01/18 [place], Insulin Disposable (INSULIN PEN NEEDLE) 1 Each Dis.needle, 1 EACH MC 3- 4XD, #100 5 Refills use with lantus solostar Prov:LYUDMILA PEÑA MD 08/01/18 Bumetanide (BUMETANIDE) 1 Mg Tablet, 2 TAB PO DAILY PRN for edema, #90 TAB 1 Refill Prov:LYUDMILA PEÑA MD 07/18/18 Rivastigmine Tartrate (RIVASTIGMINE) 3 Mg Capsule, 1 CAP PO BID, #180 CAPSULE 4 Refills Prov:LYUDMILA PEÑA MD 07/18/18 Benzonatate 100 Mg Cap (TESSALON PERLE 100 MG CAP) 100 Mg Capsule, 100 MG PO TID PRN for cough, #30 CAP Prov:LYUDMILA PEÑA MD 06/13/18 Tiotropium [place] (SPIRIVA) 18 Mcg/Cap Inh, 18 MCG INH QDAYR, #30 INH 11 Refills Prov:LYUDMILA PEÑA MD 02/01/18 Insulin Glargine 100 Un/Ml Pen (LANTUS SOLOSTAR PEN) 100 Unit/1 Ml Insuln.pen, 13-15 UNIT SQ BID, #3 VIAL 9 Refills 15 units in am and 13 units in the evening Prov:LYUDMILA PEÑA MD 12/06/17 Ezetimibe (ZETIA) 10 Mg Tablet, 1 TAB PO QDAY, #90 TAB 3 Refills Prov:LYUDMILA PEÑA MD 10/01/17 Amlodipine Besylate (AMLODIPINE BESYLATE) 5 Mg Tablet, 1 TAB PO QDAY, #90 TAB 3 Refills Prov:LYUDMILA PEÑA MD 10/01/17 Ipratropium/Albuterol Sulfate (IPRAT-ALBUT 0.5-3(2.5) MG/3 ML) 3 Ml Ampul.neb, 3 ML IH QID PRN for SHORTNESS OF BREATH, #200 TAB 2 Refills Prov:LYUDMILA PEÑA MD 09/07/17 Nebivolol Hcl (BYSTOLIC) 10 Mg Tab, 1 TAB PO BID, #180 TAB 3 Refills Prov:LYUDMILA PEÑA MD 07/06/17 Insulin Aspart 100 Un/Ml Pen (NOVOLOG FLEXPEN) 100 Unit/1 Ml Insuln.pen, 4-12 UNIT SUBQ TIDAC PRN for SLIDING SCALE INSULIN, #2 BOTTLE 9 Refills Prov:LYUDMILA PEÑA MD 1/19/18 Gabapentin (GABAPENTIN) 300 Mg Capsule, 1 CAP PO TID PRN for neuropathy, #270 CAPSULE 3 Refills Prov:LYUDMILA PEÑA MD 07/06/17 Fluticasone Prop 50 Mcg Ns (FLONASE 50 MCG NS) 16 Gm [place].susp, 2 SPRAYS NS QDAY, #1 BOT Prov:LYUDMILA PEÑA MD 04/16/17 Albuterol Sulfate 90 Mcg/Act (PROAIR HFA 90 MCG/ACT) 8.5 Gm Hfa.aer.ad, 2 PUFF IH Q4-6H PRN for SHORTNESS OF BREATH, #1 INHALER 6 Refills Prov:LYUDMILA PEÑA MD 05/02/16 Discontinued Reported Medications Docusate Sodium (COLACE) 100 Mg Capsule, 100 MG PO QDAY, CAPSULE 05/27/18 Cyanocobalamin (Vitamin B-12) (VITAMIN B-12) 500 Mcg Tablet, 500 MCG PO DAILY 08/12/14 Discontinued Scripts Fluticasone Prop 50 Mcg Ns (FLONASE 50 MCG NS) 16 Gm [place].susp, 2 SPRAYS NS QDAY, #1 BOT 3 Refills Prov:LYUDMILA PEÑA MD 12/10/17 Oxycodone Hcl/Acetaminophen (PERCOCET 5-325 MG TABLET) 1 Each Tablet, 1 EACH PO QID PRN for pain, #60 TAB Prov:LYUDMILA PEÑA MD 10/01/17 Methylprednisolone (METHYLPREDNISOLONE) 4 Mg Tab.ds.pk, 4 MG PO DIRECTED, #1 DOSE-PACK Prov:LYUDMILA PEÑA MD 08/01/18 Azithromycin (Z-PACK) 250 Mg Tablet, 0 PO QDAY, #6 DOSE-PACK Prov:LYUDMILA PEÑA MD 08/01/18 Azithromycin (Z-PACK) 250 Mg Tablet, 0 PO QDAY, #6 DOSE-PACK Prov:LYUDMILA PEÑA MD 07/08/18 Allergies: Coded Allergies: ciprofloxacin (Verified Allergy, Severe, TENDONITIS, 08/30/15) levofloxacin (Verified Allergy, Severe, tendonitis in arm, 01/06/17) Iodinated Contrast- Oral and IV Dye (Verified Allergy, Mild, OLESYA SEA/VOMITING, 08/30/15) codeine (Verified Allergy, Mild, NAUSEA/VOMITING, 01/06/17) Kjjgcmw-Pof-Cyf Reductase Inhibitor (Verified Allergy, Unknown, myalgias, 01/06/17) Sulfa (Sulfonamide Antibiotics) (Verified Allergy, Unknown, "blanks me out", vomiting, 06/07/17) diazepam (Verified Allergy, Unknown, SOMNOLENCE, 01/06/17) diphenhydramine (Verified Allergy, Unknown, HALLUCINATIONS, 01/06/17) metoprolol (Verified Allergy, Unknown, "slowed me down", 01/06/17) Neuromuscular Blockers, Steroidal (Verified Adverse Reaction, Unknown, 01/06/17) raises BP and BS Tetracyclines (Verified Adverse Reaction, Unknown, yeast infection, 06/07/17) prednisone (Verified Adverse Reaction, Unknown, 08/30/15) "INCREASES BLOOD SUGAR" Patient History: FH: CHF (congestive heart failure) BROTHER OR SISTER FH: AR (myocardial infarction) FATHER, , Age:65 MOTHER, , Age:77 FH: atrial fibrillation BROTHER OR SISTER FH: diabetes mellitus MOTHER, , Age:77 FH: stroke BROTHER OR SISTER Other Social/Family Hx Lives with her . 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 Never a tobacco use and doesn't use alcohol. 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) Caffeine Intake: Coffee, Soda Caffeine/Cups Per Day: 1 CUP/DAY Hx Alcohol Use: No Hx Substance Use Disorder: No Social Drug Use: Never Review of Systems All Systems Reviewed/Normal: Yes, Except as Noted Exam Vital Signs Vital Signs Date Time Temp Pulse Resp B/P (MAP) Pulse Ox O2 Delivery O2 Flow Rate FiO2 08/16/18 12:48 98.2 69 16 124/52 (76) 94 Nasal Cannula 3.0 General Appearance: Alert, Awake, No Acute Distress Neuro: No Gross deficits ENT: Moist Mucous Membranes Cardiovascular: Regular Rate and Rhythm Respiratory: Clear to Auscultation GI: Abd Soft and Non-Tender : No CVA Tenderness Extremities: No Edema (No pitting edema) Integumentary: No Jaundice, No Cyanosis Medical Decision Making Data Points Result Diagram: 08/16/18 1039 08/16/18 1039 Item Value Date Time Creatinine 1.80 mg/dl H 07/08/18 1126 Creatinine 3.20 mg/dl H 08/15/18 0824 Total Bilirubin 0.7 mg/dl 08/16/18 1039 Aspartate Amino Transf (AST/SGOT) 20 U/L 08/16/18 1039 Alanine Aminotransferase (ALT/SGPT) 24 U/L 08/16/18 1039 Alkaline Phosphatase 79 U/L 08/16/18 1039 Lipase 183 U/L 08/16/18 1039 Thyroid Stimulating Hormone (TSH) 3.32 uIU/ml 08/15/18 0824 Urine RBC 2 /HPF 08/16/18 1016 Urine WBC 3 /HPF 08/16/18 1016 Urine Squamous Epithelial Cells Many /LPF H 08/16/18 1016 Urine Bacteria Few /HPF 08/16/18 1016 Urine Hyaline Casts Many /LPF H 08/16/18 1016 Helicobacter pylori IgG Antibody Negative 08/16/18 1039 Influenza Virus Type A (PCR) Negative 08/16/18 1050 Influenza Virus Type B (PCR) Negative 08/16/18 1050 EKG / Imaging Imaging CXR - COPD and minor parenchymal scarring. No acute cardiopulmonary process. Assessment and Plan Problems: (1) ARF (acute renal failure) Status: Acute Assessment & Plan: She presented with a couple days of loose stools and nausea. Her creatine is elevated to 2.9 today. She is chronically on Bumex and Losartan which will be held. She will be gently hydrated and will recheck labs in the morning. (2) CKD (chronic kidney disease) stage 4, GFR 15-29 ml/min Status: Chronic Assessment & Plan: Baseline creatinine is 1.6-1.9. See above. (3) Neuropathy Status: Chronic Assessment & Plan: She is chronically on gabapentin at 300mg tid. Will renally dose at 100mg until renal function improves. (4) Gout Status: Chronic Assessment & Plan: Chronically on allopurinol 400mg bid. Will renally dose at 100mg bid until renal function improves. (5) Hypertension, benign Status: Chronic Assessment & Plan: Chronically on Bystolic, Losartan, and Amlodipine. Losartan held and will restart the others with parameters. (6) Edema Status: Chronic Assessment & Plan: Chronically on Bumex which is held. Amlodipine might be contributing, but will defer to her PCP about stopping it. 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 Check glucose AC and HS with SSI #1 to cover. Copies to: LYUDMILA PEÑA MD ; Venous Thromboembolism Antithrombotics Is Pt On Any Antithrombotics?: No Exam Sepsis Risk: No Definite Risk DI RASHID MD Aug 16, 2018 14:00
[2018-08-16 14:52] VITALS: BP 102/50
[2018-08-16] MEDS: GABAPENTIN 100 MG CAP PO SCH ×2 (14:55→21:27)
[2018-08-16] MEDS: NS(*) 0.9% 1000 ML BAG 1,000 ML IV PRN ×2 (15:02→21:29)
[2018-08-16 15:17] VITALS: Ht 160 cm; Wt 110.2 kg
[2018-08-16] MEDS: ALBUTEROL/IPRATROPIUM 3 ML NEB NEB SCH (18:02)
[2018-08-16] MEDS: SALMETEROL/FLUTIC 250/50 1 INH INH SCH (18:03)
[2018-08-16 21:04] VITALS: BP 125/44
[2018-08-16] MEDS: ALLOPURINOL 100 MG TAB PO SCH (21:27)
[2018-08-16] MEDS: NEBIVOLOL HCL 5 MG TAB PO SCH (21:27)
[2018-08-16] MEDS: EZETIMIBE 10 MG TAB PO SCH (21:27)
[2018-08-16] MEDS: BENZONATATE 100 MG CAP PO PRN (21:27)
[2018-08-16] MEDS: [UNRECOGNIZED DRUG - OTHER] PO SCH (21:28)
[2018-08-16] MEDS: NYSTATIN 100,000 U/GM PWD 15GM TP SCH (21:28)
[2018-08-16] MEDS: INSULIN GLARGINE 100 U/ML 3 ML PEN SUBQ SCH (21:29)
[2018-08-17 01:18] VITALS: BP 129/43
[2018-08-17] MEDS: TIOTROPIUM BROM INH 18 MCG/CAP INH SCH (05:50)
[2018-08-17] MEDS: ALBUTEROL/IPRATROPIUM 3 ML NEB NEB SCH ×3 (05:51→17:55)
[2018-08-17] MEDS: SALMETEROL/FLUTIC 250/50 1 INH INH SCH ×2 (05:55→18:02)
[2018-08-17] MEDS: NS(*) 0.9% 1000 ML BAG 1,000 ML IV PRN ×2 (06:12→23:10)
[2018-08-17 07:37] VITALS: BP 132/59
[2018-08-17] MEDS: [UNRECOGNIZED DRUG - OTHER] PO SCH ×2 (09:00→20:37)
[2018-08-17] MEDS: NEBIVOLOL HCL 5 MG TAB PO SCH ×2 (09:00→20:38)
[2018-08-17] MEDS: amLODIPine BESYL(*) 5 MG TAB PO SCH (09:00)
[2018-08-17 09:30] LABS: PLATELET COUNT, AUTOMATED 147 K/uL (150-450)
[2018-08-17] MEDS: ACETAMINOPHEN 325 MG TAB PO PRN ×2 (10:04→20:38)
[2018-08-17] MEDS: ALLOPURINOL 100 MG TAB PO SCH ×2 (10:04→20:38)
[2018-08-17] MEDS: GABAPENTIN 100 MG CAP PO SCH ×3 (10:04→20:38)
[2018-08-17] MEDS: NYSTATIN 100,000 U/GM PWD 15GM TP SCH ×2 (10:05→20:38)
[2018-08-17] MEDS: INSULIN GLARGINE 100 U/ML 3 ML PEN SUBQ SCH ×2 (10:06→20:37)
[2018-08-17] MEDS ORDERED: INFLUENZA VIRUS VAC 0.5ML SYR IM ONLY ONE (13:30)
--- NOTE | 2018-08-17 15:50 | Hospitalist Progress Note ---
Subjective Progress Notes Subjective The patient has a headache and requests Tylenol. Otherwise no new complaints. Physical Exam Vital Signs Date Time Temp Pulse Resp B/P (MAP) Pulse Ox O2 Delivery O2 Flow Rate FiO2 08/17/18 11:31 50 16 08/17/18 11:22 92 Nasal Cannula 2.0 08/17/18 07:37 97.9 132/59 (83) Intake and Output 08/17/18 07:00 Intake Total 2625 ml Balance 2625 ml Intake Oral 300 ml IV Total 2325 ml # Voids 4 General Appearance: Alert, Awake, No Acute Distress Neuro: No Gross deficits Eyes: PERRLA Cardiovascular: Regular Rate and Rhythm Respiratory: Clear to Auscultation GI: Soft and Non-Tender Extremities: Warm, Perfused Psych: Appropriate Mood & Affect Result Diagram: 08/17/1892108/17/18921 Assessment and Plan Problems: (1) ARF (acute renal failure) Status: Acute Assessment & Plan: She presented with a couple days of loose stools and nausea. Her creatine was elevated to 2.9 but has decreased to 2 today. She is chronically on Bumex and Losartan which are being held. She will continue to be gently hydrated and will recheck labs in the morning. (2) CKD (chronic kidney disease) stage 4, GFR 15-29 ml/min Status: Chronic Assessment & Plan: Baseline creatinine is 1.6-1.9. See above. (3) Neuropathy Status: Chronic Assessment & Plan: She is chronically on gabapentin at 300mg tid. Will renally dose at 100mg until renal function improves. (4) Gout Status: Chronic Assessment & Plan: Chronically on allopurinol 400mg bid. Will renally dose at 100mg bid until renal function improves. (5) Hypertension, benign Status: Chronic Assessment & Plan: Chronically on Bystolic, Losartan, and Amlodipine. Losartan held and will restart the others with parameters. (6) Edema Status: Chronic Assessment & Plan: Chronically on Bumex which is held. Amlodipine might be contributing, but will defer to her PCP about stopping it. 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 Check glucose AC and HS with SSI #1 to cover. Time Spent on Plan of Care: < 30 min Exam Sepsis Risk: No Definite Risk SHERLYN THAO MD Aug 17, 2018 15:50
[2018-08-17 20:13] VITALS: BP 115/43
[2018-08-17] MEDS: EZETIMIBE 10 MG TAB PO SCH (20:37)
[2018-08-17] MEDS: BENZONATATE 100 MG CAP PO PRN (20:47)
[2018-08-18 03:11] VITALS: BP 137/41
[2018-08-18 05:47] LABS: PLATELET COUNT, AUTOMATED 137 K/uL (150-450)
[2018-08-18] MEDS: TIOTROPIUM BROM INH 18 MCG/CAP INH SCH (05:54)
[2018-08-18] MEDS: SALMETEROL/FLUTIC 250/50 1 INH INH SCH ×2 (05:54→18:04)
[2018-08-18] MEDS: ALBUTEROL/IPRATROPIUM 3 ML NEB NEB SCH ×3 (05:54→18:04)
--- NOTE | 2018-08-18 07:28 | Hospitalist Progress Note ---
Subjective Progress Notes Subjective Feels better with no diarrhea or emesis although still nauseated. Has not been out of bed and is quite weak. She would like to stay for another day to get stronger. Physical Exam Vital Signs Date Time Temp Pulse Resp B/P (MAP) Pulse Ox O2 Delivery O2 Flow Rate FiO2 08/18/18 05:55 65 16 08/18/18 05:50 93 Nasal Cannula 2.0 08/18/18 03:11 97.7 137/41 (73) Intake and Output 08/18/18 07:00 Intake Total 440 ml Balance 440 ml Intake Oral 440 ml # Voids 4 General Appearance: Alert, Awake, No Acute Distress, Afebrile GI: Soft and Non-Tender : No CVA Tenderness Psych: Alert & Oriented X3, Appropriate Mood & Affect Result Diagram: 08/18/18 0532 08/18/18 0532 Item Value Date Time Random Glucose 72 mg/dl L 08/18/18 0532 Calcium Level 8.6 mg/dl 08/18/18 0532 Total Bilirubin 0.6 mg/dl 08/18/18 0532 Aspartate Amino Transf (AST/SGOT) 24 U/L 08/18/18 0532 Alkaline Phosphatase 59 U/L 08/18/18 0532 Alanine Aminotransferase (ALT/SGPT) 25 U/L 08/18/18 0532 Albumin 3.1 g/dl L 08/18/18 0532 Assessment and Plan Problems: (1) ARF (acute renal failure) Status: Acute Assessment & Plan: She presented with a couple days of loose stools and nausea. Her creatine was elevated to 2.9 but has decreased to 1.5 today which is her normal range. Will restart the bumex at lower dose of 1 mg daily and losartan 50 mg daily. (2) CKD (chronic kidney disease) stage 4, GFR 15-29 ml/min Status: Chronic Assessment & Plan: Baseline creatinine is 1.6-1.9. See above. (3) Neuropathy Status: Chronic Assessment & Plan: She is chronically on gabapentin at 300mg tid. Will renally dose at 100mg until renal function improves. (4) Gout Status: Chronic Assessment & Plan: Chronically on allopurinol 400mg bid. Will renally dose at 100mg bid until renal function improves. (5) Hypertension, benign Status: Chronic Assessment & Plan: Chronically on Bystolic, Losartan, and Amlodipine. Will restart bumex and losartan in lower dose until she goes home and then resume usual doses. (6) Edema Status: Chronic Assessment & Plan: Chronically on Bumex which is held. Amlodipine might be contributing, but will defer to her PCP about stopping it. 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 Check glucose AC and HS with SSI #1 to cover. Time Spent on Plan of Care: < 30 min Exam Sepsis Risk: No Definite Risk KRZYSZTOF BUI MD FACP Aug 18, 2018 07:28
[2018-08-18 08:01] VITALS: BP 120/44
[2018-08-18] MEDS: INSULIN GLARGINE 100 U/ML 3 ML PEN SUBQ SCH ×2 (08:18→20:24)
[2018-08-18] MEDS: amLODIPine BESYL(*) 5 MG TAB PO SCH (09:00)
[2018-08-18] MEDS: NEBIVOLOL HCL 5 MG TAB PO SCH ×2 (09:00→20:33)
--- NOTE | 2018-08-18 09:52 | Medical Nutrition Therapy ---
Nutrition Anthropometrics Height (Inches): 63.00 Height (Calculated Centimeters: [phone] Weight (Pounds): 243 Weight (Calculated Kilograms): 110.223 Turner Nutrition Score: Adequate Turner Nutrition Risk Score: 18 Dietary Referral Nutrition Risk Factors: Unplanned Loss >10lbs Nutrition Risk Comment: Physical Findings Physical Appearance: Morbidly Obese 40+ Skin Appearance Skin Appearance: Edema Edema Location Modifier: Both Edema Location: Lower Extremity Type of Edema: Degree of Edema: 1+ Gastrointestinal Symptoms GI Symtoms: Diarrhea Tube Present: Bowel Sounds: Recent Bowel Pattern: Diarrhea Stool Characteristics: Nutritional Diagnosis Nutritional Risk Acuity 1: Acute/ES Renal Nutritional Risk Acuity 3: Morbid Obesity Past Medical History: T2DM, CKD, osteoarthritis, edema, GERD, peptic ulcer dx, diabetic retinopathy, gout, hypercholesterolemia Nutritional Acuity: 1-High Nutrition Diagnosis: Altered GI Function Nutrition Etiology: Physiological Causes Nutrition Problem/Etiology/Sym: Altered GI function as related to physiological causes as evidenced by ARF. Energy Requirement: 2001 (m st jeor X1.1X1.2) Protein Requirement: 88 (0.8 g protein/kg) Fluid Requirement: 2001 (1mL/kcal) Diet Type: Diabetic Nutrition Intervention: Cont diet as ordered, Check glucose Nutrition Monitoring & Eval Nutrition Goals: Eat 50-100% Meal Nutrition Follow-Up: Fair Intake Nutrition Monitoring: Consuming 80% of meals RD Patient Assessment Time: [address] Assessment Type: RD Screen Patient Nutrition Acuity: 1-High Follow Up Date: Aug 18, 2018 Nutritional Comment: 08/16: Pt admitted for ARF, CKD, HTN, DMT2, and neuropathy. Pt has a hx of CKD, HTn, asthma, hypothyroidism, osteoarthritis, obesity, edema, DMT2, GERD, gout. Pt has elevated BUN (77), creatinine (2.9) and RBG (207) levels. Pt on diabetic diet. -JJ 08/18 Pt continues on the ADA diet with 80% intakes. Pt is taking insulin with whole blood glucose ranginf frm 87-134. BUN is elevated at 40, creatinine is elevated at 0.50. Pt reports nausea but no V/D. Monitor blood glucose and adequate intake. -ROBER BEYER Aug 18, 2018 09:52
[2018-08-18] MEDS: ALLOPURINOL 100 MG TAB PO SCH ×2 (09:56→20:25)
[2018-08-18] MEDS: BUMETANIDE 2 MG TAB PO SCH (09:57)
[2018-08-18] MEDS: LOSARTAN POTASSIUM 50 MG TAB PO SCH (09:58)
[2018-08-18] MEDS: GABAPENTIN 100 MG CAP PO SCH ×3 (09:58→20:25)
[2018-08-18] MEDS: [UNRECOGNIZED DRUG - OTHER] PO SCH ×2 (09:59→20:25)
[2018-08-18] MEDS: NYSTATIN 100,000 U/GM PWD 15GM TP SCH ×2 (10:00→20:37)
[2018-08-18] MEDS: NS(*) 0.9% 1000 ML BAG 1,000 ML IV PRN (13:48)
[2018-08-18 15:10] VITALS: BP 138/77
[2018-08-18 19:45] VITALS: BP 142/57
[2018-08-18] MEDS: EZETIMIBE 10 MG TAB PO SCH (20:25)
[2018-08-18] MEDS: BENZONATATE 100 MG CAP PO PRN (20:33)
[2018-08-19] MEDS: SALMETEROL/FLUTIC 250/50 1 INH INH SCH (06:11)
[2018-08-19] MEDS: ALBUTEROL/IPRATROPIUM 3 ML NEB NEB SCH ×2 (06:11→11:16)
[2018-08-19] MEDS: TIOTROPIUM BROM INH 18 MCG/CAP INH SCH (06:11)
[2018-08-19 08:52] VITALS: BP 162/71
[2018-08-19] MEDS: INSULIN GLARGINE 100 U/ML 3 ML PEN SUBQ SCH (08:57)
[2018-08-19] MEDS: BUMETANIDE 2 MG TAB PO SCH (08:58)
[2018-08-19] MEDS: GABAPENTIN 100 MG CAP PO SCH (08:59)
[2018-08-19] MEDS: LOSARTAN POTASSIUM 50 MG TAB PO SCH (08:59)
[2018-08-19] MEDS: amLODIPine BESYL(*) 5 MG TAB PO SCH (08:59)
[2018-08-19] MEDS: NEBIVOLOL HCL 5 MG TAB PO SCH (08:59)
[2018-08-19] MEDS: [UNRECOGNIZED DRUG - OTHER] PO SCH (08:59)
[2018-08-19] MEDS: ALLOPURINOL 100 MG TAB PO SCH (08:59)
--- NOTE | 2018-08-19 10:03 | Hospitalist Depart ---
Discharge Summary Reason for Hosp/Final Diag: (1) ARF (acute renal failure) Status: Acute Hospital Course & Plan: She presented with a couple days of loose stools and nausea. Her creatine was elevated to 2.9 upon admission but has decreased to 1.1 today which is her normal range. Her bumex was restarted at a lower dose of 1 mg daily and losartan 50 mg daily with a decrease in creatinine. Will have patient continue regular regimen, encouraged hydration. She will follow up with PCP in one week with labs. (2) CKD (chronic kidney disease) stage 4, GFR 15-29 ml/min Status: Chronic Hospital Course & Plan: Baseline creatinine is 1.6-1.9. See above. (3) Neuropathy Status: Chronic Hospital Course & Plan: She is chronically on gabapentin at 300mg tid. She was renally dosed during admission at 100mg until renal function improved. (4) Gout Status: Chronic Hospital Course & Plan: Chronically on allopurinol 400mg bid. She was renally dosed at 100mg bid until renal function improved during admission. (5) Hypertension, benign Status: Chronic Hospital Course & Plan: Chronically on Bystolic, Losartan, and Amlodipine. Her bumex and losartan were restarted at lower dose during admission and then resume usual doses. (6) Edema Status: Chronic Hospital Course & Plan: Chronically on Bumex. Amlodipine might be contributing, but will defer to her PCP about stopping it. 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 Check glucose AC and HS with SSI #1 to cover. Departure Latest Vital Signs Vital Signs 08/19/18 08:52 Temp 98.2 Pulse 75 Resp 16 B/P (MAP) 162/71 (101) Pulse Ox 90 O2 Delivery Nasal Cannula O2 Flow Rate 2.0 Weight (Pounds): 243 Result Diagram: 08/18/18 0532 08/19/18 0549 Condition: Improved Discharge: Home, Self Care Discharge Instructions Home Meds Active Scripts Allopurinol (ALLOPURINOL) 100 Mg Tablet, 2 TAB PO QDAY, #180 TAB 3 Refills Prov:LYUDMILA PEÑA MD 08/05/18 Fluticasone/Salmeterol (ADVAIR 250-50 DISKUS) 1 Each Disk.w.dev, 1 EACH IH BID, #3 DISK 4 Refills Prov:LYUDMILA PEÑA MD 08/05/18 Losartan Potassium (LOSARTAN POTASSIUM) 100 Mg Tablet, 1 TAB PO QDAY, #90 TAB 3 Refills Prov:LYUDMILA PEÑA MD 08/05/18 [place], Insulin Disposable (Bd Ultra-Fine Pen Needle) 1 Each Dis.needle, UNIT MC Q30D, #100 5 Refills Prov:LYUDMILA PEÑA MD 08/01/18 [place], Insulin Disposable (INSULIN PEN NEEDLE) 1 Each Dis.needle, 1 EACH MC 3- 4XD, #100 5 Refills use with lantus solostar Prov:LYUDMILA PEÑA MD 08/01/18 Bumetanide (BUMETANIDE) 1 Mg Tablet, 2 TAB PO DAILY PRN for edema, #90 TAB 1 Refill Prov:LYUDMILA PEÑA MD 07/18/18 Rivastigmine Tartrate (RIVASTIGMINE) 3 Mg Capsule, 1 CAP PO BID, #180 CAPSULE 4 Refills Prov:LYUDMILA PEÑA MD 07/18/18 Benzonatate 100 Mg Cap (TESSALON PERLE 100 MG CAP) 100 Mg Capsule, 100 MG PO TID PRN for cough, #30 CAP Prov:LYUDMILA PEÑA MD 06/13/18 Tiotropium [place] (SPIRIVA) 18 Mcg/Cap Inh, 18 MCG INH QDAYR, #30 INH 11 Refills Prov:LYUDMILA PEÑA MD 02/01/18 Insulin Glargine 100 Un/Ml Pen (LANTUS SOLOSTAR PEN) 100 Unit/1 Ml Insuln.pen, 13-15 UNIT SQ BID, #3 VIAL 9 Refills 15 units in am and 13 units in the evening Prov:LYUDMILA PEÑA MD 12/06/17 Ezetimibe (ZETIA) 10 Mg Tablet, 1 TAB PO QDAY, #90 TAB 3 Refills Prov:LYUDMILA PEÑA MD 10/01/17 Amlodipine Besylate (AMLODIPINE BESYLATE) 5 Mg Tablet, 1 TAB PO QDAY, #90 TAB 3 Refills Prov:LYUDMILA PEÑA MD 10/01/17 Ipratropium/Albuterol Sulfate (IPRAT-ALBUT 0.5-3(2.5) MG/3 ML) 3 Ml Ampul.neb, 3 ML IH QID PRN for SHORTNESS OF BREATH, #200 TAB 2 Refills Prov:LYUDMILA PEÑA MD 09/07/17 Nebivolol Hcl (BYSTOLIC) 10 Mg Tab, 1 TAB PO BID, #180 TAB 3 Refills Prov:LYUDMILA PEÑA MD 07/06/17 Insulin Aspart 100 Un/Ml Pen (NOVOLOG FLEXPEN) 100 Unit/1 Ml Insuln.pen, 4-12 UNIT SUBQ TIDAC PRN for SLIDING SCALE INSULIN, #2 BOTTLE 9 Refills Prov:LYUDMILA PEÑA MD 07/06/17 Gabapentin (GABAPENTIN) 300 Mg Capsule, 1 CAP PO TID PRN for neuropathy, #270 CAPSULE 3 Refills Prov:LYUDMILA PEÑA MD 07/06/17 Fluticasone Prop 50 Mcg Ns (FLONASE 50 MCG NS) 16 Gm [place].susp, 2 SPRAYS NS QDAY, #1 BOT Prov:LYUDMILA PEÑA MD 04/16/17 Albuterol Sulfate 90 Mcg/Act (PROAIR HFA 90 MCG/ACT) 8.5 Gm Hfa.aer.ad, 2 PUFF IH Q4-6H PRN for SHORTNESS OF BREATH, #1 INHALER 6 Refills Prov:LYUDMILA PEÑA MD 05/02/16 Discontinued Reported Medications Docusate Sodium (COLACE) 100 Mg Capsule, 100 MG PO QDAY, CAPSULE 05/27/18 Cyanocobalamin (Vitamin B-12) (VITAMIN B-12) 500 Mcg Tablet, 500 MCG PO DAILY 08/12/14 Discontinued Scripts Fluticasone Prop 50 Mcg Ns (FLONASE 50 MCG NS) 16 Gm [place].susp, 2 SPRAYS NS QDAY, #1 BOT 3 Refills Prov:LYUDMILA PEÑA MD 12/10/17 Oxycodone Hcl/Acetaminophen (PERCOCET 5-325 MG TABLET) 1 Each Tablet, 1 EACH PO QID PRN for pain, #60 TAB Prov:LYUDMILA PEÑA MD 10/01/17 Methylprednisolone (METHYLPREDNISOLONE) 4 Mg Tab.ds.pk, 4 MG PO DIRECTED, #1 DOSE-PACK Prov:LYUDMILA PEÑA MD 08/01/18 Azithromycin (Z-PACK) 250 Mg Tablet, 0 PO QDAY, #6 DOSE-PACK Prov:LYUDMILA PEÑA MD 08/01/18 Azithromycin (Z-PACK) 250 Mg Tablet, 0 PO QDAY, #6 DOSE-PACK Prov:LYUDMILA PEÑA MD 07/08/18 Diet: Regular Activity: As Tolerated Special Instructions: Follow up with PCP in one week. Recommend checking kindey function labs at appointment. Increase hydration. Take medications as prescribed. Copies to: LYUDMILA PEÑA MD ; Venous Thromboembolism Antithrombotics Is Pt On Any Antithrombotics?: No JOSE SIMS Aug 19, 2018 10:03
== END 2018-08-19 11:40 | disposition home or self-care (01) | DRG 683 ==
LOC: ER 10:25 → MED 12:18
PROVIDERS: ADMIT Internal Medicine; ATTEND Internal Medicine
DX: N17.9 Acute kidney failure, unspecified (principal); Z68.41 Body mass index [BMI] 40.0-44.9, adult; E11.22 Type 2 diabetes mellitus with diabetic chronic kidney disease; I12.9 Hypertensive chronic kidney disease with stage 1 through stage 4 chronic kidney disease, or unspecified chronic kidney disease; N18.4 Chronic kidney disease, stage 4 (severe); E11.40 Type 2 diabetes mellitus with diabetic neuropathy, unspecified; E11.319 Type 2 diabetes mellitus with unspecified diabetic retinopathy without macular edema; E86.0 Dehydration; E78.5 Hyperlipidemia, unspecified; R60.0 Localized edema; M1A.9XX0 Chronic gout, unspecified, without tophus (tophi); J45.909 Unspecified asthma, uncomplicated; K21.9 Gastro-esophageal reflux disease without esophagitis; E03.9 Hypothyroidism, unspecified; E66.9 Obesity, unspecified; R60.9 Edema, unspecified; Z96.641 Presence of right artificial hip joint; Z79.4 Long term (current) use of insulin; Z88.1 Allergy status to other antibiotic agents; Z88.2 Allergy status to sulfonamides; Z88.5 Allergy status to narcotic agent; Z88.8 Allergy status to other drugs, medicaments and biological substances; Z90.710 Acquired absence of both cervix and uterus
CPT/HCPCS: 36415; 36416; 71046; 81001; 82040; 82247; 82310; 82374; 82435; 82565; 82947; 82948; 83690; 84075; 84132; 84155; 84295; 84450; 84460; 84520; 85025; 86677; 87502; 94640; 96374; 99284; J1815; J2405; J3535; J7030; J7040

== ENCOUNTER → 2018-11-13 | Outpatient (CLI) | payer MEDICARE, OTHER ==
[2018-08-16 15:17] VITALS: BMI 43.0
[~2018-11-13] MED LIST changes: -DIPH0.5D12 IM; +DIPH0.5S2 IM; -ROSU20TA23 PO; +ROSU20TA24 PO
[2018-11-13 08:09] LABS: PLATELET COUNT, AUTOMATED 196 K/uL (150-450)
== END ==
LOC: LAB 07:50
PROVIDERS: ATTEND Internal Medicine Nephrology
DX: R60.0 Localized edema (principal); I10 Essential (primary) hypertension; N18.9 Chronic kidney disease, unspecified; E11.49 Type 2 diabetes mellitus with other diabetic neurological complication; E78.00 Pure hypercholesterolemia, unspecified; G62.9 Polyneuropathy, unspecified
CPT/HCPCS: 36415; 82040; 82310; 82374; 82435; 82565; 82570; 82947; 83970; 84100; 84132; 84156; 84295; 84520; 85025

== ENCOUNTER → 2018-11-26 | Outpatient (CLI) | payer MEDICARE, OTHER ==
[2018-08-16 15:17] VITALS: BMI 43.0
[~2018-11-26] MED LIST changes: -BUM2 PO; -BUME1TAB19 PO; +BUME1TAB21 PO; +BUME2TAB17 PO; -CYAN500T38 PO; +CYAN500T39 PO
[2018-11-26 08:43] LABS: PLATELET COUNT, AUTOMATED 223 K/uL (150-450)
== END ==
LOC: LAB 07:50
PROVIDERS: ATTEND Internal Medicine
DX: I12.9 Hypertensive chronic kidney disease with stage 1 through stage 4 chronic kidney disease, or unspecified chronic kidney disease (principal); N17.9 Acute kidney failure, unspecified; N18.9 Chronic kidney disease, unspecified; J45.909 Unspecified asthma, uncomplicated; E78.00 Pure hypercholesterolemia, unspecified; E11.49 Type 2 diabetes mellitus with other diabetic neurological complication; M1A.39X0 Chronic gout due to renal impairment, multiple sites, without tophus (tophi)
CPT/HCPCS: 36415; 81001; 82040; 82247; 82310; 82374; 82435; 82465; 82565; 82947; 83036; 83718; 84075; 84132; 84155; 84295; 84439; 84443; 84450; 84460; 84478; 84520; 84550; 85025